=== PATIENT | male | born 1965 | race Caucasian/White ===

== ENCOUNTER 2018-06-10 06:43 | Emergency (ER) | payer OTHER ==
[~2018-06-10] VITALS: Ht 177.8 cm; Wt 108.9 kg
[2018-06-10 06:50] VITALS: BP 146/92
--- NOTE | 2018-06-10 06:55 | NUR ---
53/M CAME IN ED, C/O 04/01 [facility] INTERMITTENT R SIDED CP, NONRADIATING, X6 HRS. PT REPORTS EXACERBATED BY DEEP INSPIRATION. PT REPORTS SOB. PT DENIES N/V. AOX4, AMBULATORY, RR EVEN AND SLIGHTLY LABORED. LUNG SOUNDS DIMINISHED. PT REPORTS SMOKING CIGARETTES BEFORE COMING IN THE ER. PLACED ON MONITOR. EKG DONE BY EMT HX AL WITH STENT (2017), HTN, DM, SMOKER (1PPD FOR 50 YEARS)
--- NOTE | 2018-06-10 07:05 | NUR ---
EKG PERFORMED AT BEDSIDE. PT COVERED IN GOWN DURING PROCEDURE
[2018-06-10] MEDS ORDERED: ASPIRIN 81 MG TAB.CHEW PO ONE (07:15)
--- NOTE | 2018-06-10 07:16 | NUR ---
LAB AT BEDSIDE
--- NOTE | 2018-06-10 07:21 | NUR ---
XRAY AT BEDSIDE
--- NOTE | 2018-06-10 07:28 | NUR ---
Patient being evaluated by physician at bedside.
--- NOTE | 2018-06-10 07:31 | NUR ---
CALLED RT FOR TREATMENT
[2018-06-10] MEDS ORDERED: predniSONE 20 MG TAB PO ONE (07:35)
[2018-06-10] MEDS ORDERED: ALBUTEROL 0.083% 2.5 MG/3 ML NEBU INH ONE (07:35)
[2018-06-10] MEDS ORDERED: ALBUTEROL SULFATE/IPRATROPIU 3 ML SOL IH ONE (07:35)
--- NOTE | 2018-06-10 07:38 | NUR ---
RT AT BEDSIDE
[2018-06-10 07:39] LABS: BASOPHILS % (AUTO) 0.5 % (0.0-2.0); EOSINOPHILS # (AUTO) 0.2 K/uL (0-0.4); EOSINOPHILS % (AUTO) 2.1 % (0.0-4.0); HEMATOCRIT 44.6 % (36-52); LYMPHOCYTES # (AUTO) 1.8 K/uL (2.0-11.5); LYMPHOCYTES % (AUTO) 21.3 % (20.5-51.1); MEAN CORPUSCULAR HEMOGLOBIN 31 pg (27-31); MEAN CORPUSCULAR HGB CONC 34 g/dL (33-37); MEAN CORPUSCULAR VOLUME 92.5 fL (80-94); MONOCYTES # (AUTO) 0.6 K/uL (0.8-1.0); MONOCYTES % (AUTO) 6.9 % (1.7-9.3); NEUTROPHILS # (AUTO) 5.9 K/uL (1.8-7.7); NEUTROPHILS % (AUTO) 69.2 % (42.2-75.2); PLATELET COUNT (AUTO) 262 K/uL (140-450); RED BLOOD CELL COUNT(AUTO) 4.82 MIL/uL (4.20-6.10); RED CELL DISTRIBUTION WIDTH 13.4 % (11.6-13.7); WHITE BLOOD COUNT (AUTO) 8.6 K/uL (4.8-10.8)
--- NOTE | 2018-06-10 07:48 | NUR ---
rt at bedside
[2018-06-10 07:55] LABS: ANION GAP 15.7 (8-16); CARBON DIOXIDE 25.4 mmol/L (21-32); POTASSIUM 4.1 mmol/L (3.5-5.1)
[2018-06-10 08:01] LABS: ALBUMIN 3.6 g/dL (3.4-5.0); TOTAL BILIRUBIN 0.9 mg/dL (0.0-1.0)
[2018-06-10 08:06] LABS: PROTHROMBIN TIME 8.9 secs (10.8-13.4)
[2018-06-10 08:36] VITALS: BP 143/84
--- NOTE | 2018-06-10 08:36 | NUR ---
Patient discharged with v/s stable. Written and verbal after care instructions given and explained. Patient alert, oriented and verbalized understanding of instructions. Ambulatory with steady gait. All questions addressed prior to discharge. ID band removed. Patient advised to follow up with PMD. Rx of motrin, albuterol, prednisone given. Patient educated on indication of medication including possible reaction and side effects. Opportunity to ask questions provided and answered.
== END 2018-06-10 08:36 | disposition home or self-care (01) ==
LOC: MED 06:43
DX: R06.02 Shortness of breath (principal); R07.89 Other chest pain; R05 Cough; E11.9 Type 2 diabetes mellitus without complications; I10 Essential (primary) hypertension; F17.200 Nicotine dependence, unspecified, uncomplicated; Z90.49 Acquired absence of other specified parts of digestive tract; Z98.61 Coronary angioplasty status
CPT/HCPCS: 36415; 71045; 80053; 82948; 83880; 84484; 85025; 85610; 85730; 93005; 94640; 99285; J7512; J7613; J7620